=== PATIENT | female | born 2000 | race African-American/Black ===

== ENCOUNTER 2025-02-13 04:12 | Emergency (ER) | payer MEDICAID ==
[~2025-02-13] VITALS: Ht 167.6 cm; Wt 172.7 kg
[2025-02-13 04:15] VITALS: TEMP 98.2
[2025-02-13] MEDS: DOXYCYCLINE HYCLATE 100 MG TABLET PO ONE (06:25)
[2025-02-13] MEDS: CefTRIAXone SODIUM 1 GM/VIAL IM ONE (06:25)
[2025-02-13] MEDS: LIDOCAINE/PF 1% 2 ML VIAL IM ONE (06:25)
[2025-02-13 06:45] VITALS: BP 127/85; PULSE 82; RESP 18; O2SAT 100
[2025-02-13 06:58] LABS: APPEARANCE,URINE CLEAR (CLEAR); GLUCOSE, URINE (UA) NEGATIVE (NEGATIVE); LEUKOCYTE ESTERASE ,URINE TRACE (NEGATIVE); NITRATE,URINE NEGATIVE (NEGATIVE); OCCULT BLOOD,URINE NEGATIVE (NEGATIVE); SPECIFIC GRAVITIY, URINE 1.026 (1.003-1.030)
[2025-02-13 07:02] LABS: SQUAMOUS EPITHELIAL CELL,UR Few /LPF (None Seen)
== END 2025-02-13 07:10 | disposition home or self-care (01) ==
LOC: EMS 04:14
DX: R30.0 Dysuria (principal); R19.7 Diarrhea, unspecified; Z20.2 Contact with and (suspected) exposure to infections with a predominantly sexual mode of transmission; F12.90 Cannabis use, unspecified, uncomplicated
CPT/HCPCS: 99283; 81001; 84703; 96372; J0696; J3490

== ENCOUNTER 2025-02-19 08:43 | Emergency (ER) | payer MEDICAID ==
[~2025-02-19] VITALS: Ht 167.6 cm; Wt 168.2 kg
[2025-02-19 08:47] VITALS: TEMP 98
[2025-02-19 09:10] LABS: PLATELET COUNT (AUTO) 336 K/uL (150-450); RED BLOOD CELL COUNT(AUTO) 4.18 MIL/uL (4.00-5.20); RED CELL DISTRIBUTION WIDTH 18.8 % (11.5-14.5); WHITE BLOOD COUNT (AUTO) 6.0 K/uL (4.5-11.0)
[2025-02-19 09:14] LABS: CALCIUM, TOTAL 9.1 mg/dL (8.8-10.5); CREATININE 0.87 mg/dL (0.60-1.30); GLOMERULAR FILTR. RATE CALC > 60 mL/min (>60); GLUCOSE,RANDOM 92 mg/dL (70-110); SODIUM SERUM 140 mmol/L (136-145); UREA NITROGEN, BLOOD 14 mg/dL (7-18)
[2025-02-19 09:36] LABS: ASPARTATE AMINOTRANSFERASE 11 U/L (15-37); HCG,QUANTITATIVE < 1 mIU/mL (0-6); TOTAL PROTEIN, SERUM 8.6 g/dL (6.4-8.2)
[2025-02-19 10:00] LABS: APPEARANCE,URINE HAZY (CLEAR); GLUCOSE, URINE (UA) NEGATIVE (NEGATIVE); LEUKOCYTE ESTERASE ,URINE MODERATE (NEGATIVE); NITRATE,URINE NEGATIVE (NEGATIVE); OCCULT BLOOD,URINE NEGATIVE (NEGATIVE); SPECIFIC GRAVITIY, URINE 1.029 (1.003-1.030)
[2025-02-19 10:11] LABS: SQUAMOUS EPITHELIAL CELL,UR Moderate /LPF (None Seen)
[2025-02-19] MEDS: CEPHALEXIN MONOHYDRATE 500 MG CAPSULE PO ONE (10:38)
[2025-02-19] MEDS: IBUPROFEN 600 MG TABLET PO ONE (10:38)
[2025-02-19 11:07] VITALS: BP 137/73; PULSE 77; RESP 18; O2SAT 100
[2025-02-19] MEDS ORDERED: METH-659 PO (11:37)
[2025-02-19] MEDS ORDERED: IBUP-1492 PO (11:37)
[2025-02-19] MEDS ORDERED: CEPH-558 PO (11:37)
== END 2025-02-19 11:51 | disposition home or self-care (01) ==
LOC: EMS 08:57
DX: S39.012A Strain of muscle, fascia and tendon of lower back, initial encounter (principal); N39.0 Urinary tract infection, site not specified; F12.90 Cannabis use, unspecified, uncomplicated; X58.XXXA Exposure to other specified factors, initial encounter; Y93.89 Activity, other specified; Y92.89 Other specified places as the place of occurrence of the external cause; Y99.8 Other external cause status
CPT/HCPCS: 80048; 80076; 81001; 83690; 84702; 85025; 87086; 99284